=== PATIENT | female | born 1950 | race Two or more races ===

== ENCOUNTER 2019-01-18 16:25 | Emergency (ER) | payer OTHER ==
[~2019-01-18] VITALS: Ht 144.8 cm; Wt 59.0 kg
[2019-01-18 17:27] LABS: Basophils # (auto) 0.1 uL; Basophils % (auto) 0.4 % (0.0-2.0); Eosinophils # (auto) 0.1 uL; Eosinophils % (auto) 1.1 % (0.0-7.0); Hematocrit 41.5 % (36.0-46.0); Hemoglobin 13.5 g/dL (12.2-16.2); Lymphocytes # (auto) 2.4 uL; Lymphocytes % (auto) 17.9 % (10.0-50.0); Mean Corpuscular Hemoglobin 28.5 pg (28.0-32.0); Mean Corpuscular Hgb Conc. 32.5 g/dL (32.0-36.0); Mean Corpuscular Volume 87.8 fL (80.0-100.0); Monocytes # (auto) 0.7 uL; Monocytes % (auto) 5.3 % (0.0-12.0); Neutrophils # (auto) 10.3 uL; Neutrophils % (auto) 75.3 % (37.0-80.0); Platelet Count (auto) 335 10^3/uL (140-450); Red Blood Cells 4.72 10^6/uL (4.0-5.20); Red Cell Distribution Width 13.7 % (11.8-14.3); White Blood Cell 13.7 10^3/uL (4.4-10.8)
[2019-01-18 17:43] LABS: Albumin 3.9 g/dL (3.4-5.0); Anion Gap 11 (5-15); Blood Urea Nitrogen 13 mg/dL (7-18); Carbon Dioxide 23 mmol/L (21-32); Chloride 106 mmol/L (98-107); Glucose 191 mg/dL (74-106); Potassium 3.7 mmol/L (3.5-5.1); Sodium 140 mmol/L (136-145)
[2019-01-18 17:48] LABS: Alanine Aminotransferase 21 U/L (13-56); Alkaline Phosphatase 132 U/L (45-117); Aspartate Aminotransferase 15 U/L (15-37); BUN/Creatinine Ratio 17.1; Bilirubin, Total 0.3 mg/dL (0.2-1.0); GFR African American 97 mL/min; GFR Non-African American 80 mL/min; Total Protein 8.2 g/dL (6.4-8.2)
[2019-01-18] MEDS ORDERED: cloNIDine HCL 0.1 MG TAB ONE (19:10)
[2019-01-18] MEDS ORDERED: cloNIDine HCL 0.1 MG TAB PO ONE ×2 (19:15)
[2019-01-18 20:35] VITALS: BP 164/87
== END 2019-01-18 20:36 | disposition home or self-care (01) ==
LOC: EDBD 16:25 → ER 16:25
DX: S00.83XA Contusion of other part of head, initial encounter (principal); I10 Essential (primary) hypertension; V49.9XXA Car occupant (driver) (passenger) injured in unspecified traffic accident, initial encounter; Y93.I9 Activity, other involving external motion; Y92.488 Other paved roadways as the place of occurrence of the external cause; Y99.8 Other external cause status
CPT/HCPCS: 36415; 70450; 71250; 72125; 74176; 80053; 84484; 85025

== ENCOUNTER 2019-11-26 10:13 | Inpatient (IN) | payer OTHER ==
[~2019-11-26] VITALS: Ht 144.8 cm; Wt 63.3 kg
[2019-11-26 11:25] LABS: Basophils # (auto) 0.1 10 ^3/uL (0-0.2); Hemoglobin 13.6 g/dL (12.2-16.2); Lymphocytes % (auto) 13.7 % (10.0-50.0); Nucleated Red Blood Cells % 0.1 %
[2019-11-26 11:27] LABS: Basophils % (auto) 0.6 % (0.0-2.0); Eosinophils # (auto) 0.2 10 ^3/uL (0-0.8); Eosinophils % (auto) 0.8 % (0.0-7.0); Hematocrit 43.7 % (36.0-46.0); Lymphocytes # (auto) 3.5 10 ^3/uL (0.4-5.4); Mean Corpuscular Hemoglobin 28.1 pg (28.0-32.0); Mean Corpuscular Hgb Conc. 31.1 g/dL (32.0-36.0); Mean Corpuscular Volume 90.4 fL (80.0-100.0); Monocytes # (auto) 1.2 10 ^3/uL (0-1.3); Monocytes % (auto) 4.9 % (0.0-12.0); Neutrophils # (auto) 20.2 10 ^3/uL (1.6-8.6); Platelet Count (auto) 366 10^3/uL (140-450); Red Blood Cells 4.83 10^6/uL (4.0-5.20); Red Cell Distribution Width 15.1 % (11.8-14.3); White Blood Cell 25.2 10^3/uL (4.4-10.8)
[2019-11-26 11:36] LABS: Chloride 101 mmol/L (98-107); Sodium 133 mmol/L (136-145)
[2019-11-26 11:46] LABS: Alanine Aminotransferase 41 U/L (13-56); Albumin 3.5 g/dL (3.4-5.0); Alkaline Phosphatase 130 U/L (45-117); Anion Gap 13 (5-15); Aspartate Aminotransferase 41 U/L (15-37); Bilirubin, Total 0.6 mg/dL (0.2-1.0); Blood Urea Nitrogen 16 mg/dL (7-18); Calcium 8.8 mg/dL (8.5-10.1); Carbon Dioxide 19 mmol/L (21-32); GFR African American 81 mL/min; GFR Non-African American 67 mL/min; Glucose 399 mg/dL (74-106); Lactate Dehydrogenase 323 U/L (84-246); Total Protein 8.5 g/dL (6.4-8.2)
[2019-11-26 11:47] LABS: Urine Amorphous Crystal FEW /hpf (None Seen); Urine Bacteria FEW /hpf (None Seen); Urine Blood Negative /uL (Negative); Urine Specific Gravity 1.024 (1.001-1.035); Urine WBC 6 /hpf (0 - 5)
[2019-11-26 11:55] VITALS: BP 154/93
[2019-11-26] MEDS ORDERED: cefTRIAXone 1GM/50ML D5W 50 ML IV ONE (12:00)
[2019-11-26 12:14] LABS: Lactic Acid w/Reflex 4.6 mmol/L (0.4-2.0)
[2019-11-26 12:49] LABS: INR 1.04 (0.9-1.15); Partial Thromboplastin Time 23.4 sec (23.0-31.2)
[2019-11-26] MEDS ORDERED: SODIUM CHLORIDE 0.9% 1,000 ML IV SCH (12:52)
[2019-11-26] MEDS ORDERED: PIPERACILLIN-TAZOB 3.375GM 100 ML IV ONE (13:00)
[2019-11-26] MEDS ORDERED: DEXTROSE (50%) 50ML SYRG IV PRN (13:00)
[2019-11-26] MEDS ORDERED: VANCOMYCIN PER PHARMACY 0 MG IV SCH (13:00)
[2019-11-26] MEDS ORDERED: methylPREDNISolone SOD SUCC 125 MG/2 ML VL IV ONE (13:00)
[2019-11-26] MEDS ORDERED: NITROGLYCERIN 0.4 MG SL TAB SL PRN ×2 (13:00→13:15)
[2019-11-26] MEDS ORDERED: ENOXAPARIN SOD 60 MG/0.6 ML SYRINGE SC ONE ×2 (13:00→13:45)
[2019-11-26] MEDS ORDERED: FUROSEMIDE 40 MG/4 ML VIAL IV ONE (13:00)
[2019-11-26] MEDS ORDERED: ACETAMINOPHEN 500 MG TAB PO PRN (13:00)
[2019-11-26] MEDS ORDERED: MORPHINE SULF INJ 2 MG/ML SYRINGE 1ML IV PRN (13:00)
[2019-11-26] MEDS ORDERED: METOPROLOL SUCCINATE XL 50 MG TAB PO ONE ×2 (13:15→13:45)
[2019-11-26] MEDS ORDERED: LOSARTAN POTASSIUM 25 MG TAB PO ONE ×2 (13:15→13:45)
[2019-11-26] MEDS ORDERED: MORPHINE SULFATE 4 MG/ML SYR/VIAL IV PRN (13:15)
[2019-11-26] MEDS ORDERED: ONDANSETRON HCL 4 MG/2 ML VIAL IV PRN (13:15)
[2019-11-26] MEDS ORDERED: LORazepam 0.5 MG TAB PO PRN (13:15)
[2019-11-26] MEDS ORDERED: ATORVASTATIN 20 MG TAB PO ONE (13:15)
[2019-11-26] MEDS ORDERED: ALUM & MAG HYDROX-SIMETH LIQ(MAALOX) 30 ML PO ONE (13:15)
[2019-11-26] MEDS ORDERED: CHOLECALCIFEROL (VITD3) 2,000 UNIT CAP PO ONE (13:30)
[2019-11-26] MEDS ORDERED: ASPirin 81 mg TAB PO ONE (13:45)
[2019-11-26] MEDS ORDERED: DOCUSATE SOD 100 MG CAP PO ONE (13:45)
[2019-11-26] MEDS ORDERED: ZINC SULFATE 220mg CAP or TAB PO ONE (13:45)
[2019-11-26] MEDS ORDERED: ASCORBIC ACID 1,000 MG TAB PO ONE (13:45)
[2019-11-26] MEDS ORDERED: FAMOTIDINE (10MG/ML) 2ML VL IV ONE (13:45)
[2019-11-26] MEDS: FUROSEMIDE 20 MG/2 ML VIAL IV SCH ×2 (13:47→18:15)
[2019-11-26] MEDS ORDERED: ALBUTEROL SULF HFA 90MCG INH 200DOSE IN SCH (14:00)
[2019-11-26] MEDS ORDERED: POTASSIUM CHL 20MEQ/100ML 100 ML IV SCH (14:30)
[2019-11-26] MEDS ORDERED: FUROSEMIDE 20 MG/2 ML VIAL IV SCH (18:00)
[2019-11-26] MEDS: ACCU-CHEK COMFORT CURVE STRIP VI SCH ×2 (18:11→22:40)
[2019-11-26] MEDS: VANCOMYCIN 750mg/250ml 250 ML IV SCH (18:11)
[2019-11-26] MEDS: InsuLIN REG 1unit/0.01ml Soln (100units/ml) SC SCH ×2 (18:40→22:36)
[2019-11-26] MEDS ORDERED: BUDESONIDE (INHALATION) 180 MCG IH IN SCH (22:00)
[2019-11-26] MEDS: PIPERACILLIN-TAZOB 3.375GM 100 ML IV SCH (22:03)
[2019-11-26] MEDS: methylPREDNISolone SOD SUCC 40 MG/ML VL IV SCH (22:08)
[2019-11-26] MEDS: FAMOTIDINE (10MG/ML) 2ML VL IV SCH (22:08)
[2019-11-26] MEDS: ENOXAPARIN SOD 60 MG/0.6 ML SYRINGE SC SCH (22:09)
[2019-11-26] MEDS: ATORVASTATIN 20 MG TAB PO SCH (22:09)
[2019-11-27] MEDS: PIPERACILLIN-TAZOB 3.375GM 100 ML IV SCH ×5 (02:21→23:48)
[2019-11-27 05:55] LABS: Basophils # (auto) 0.1 10 ^3/uL (0-0.2); Basophils % (auto) 0.4 % (0.0-2.0); Eosinophils # (auto) 0 10 ^3/uL (0-0.8); Eosinophils % (auto) 0.1 % (0.0-7.0); Hematocrit 42.1 % (36.0-46.0); Hemoglobin 13.7 g/dL (12.2-16.2); Lymphocytes # (auto) 1.7 10 ^3/uL (0.4-5.4); Mean Corpuscular Hemoglobin 28.3 pg (28.0-32.0); Mean Corpuscular Hgb Conc. 32.6 g/dL (32.0-36.0); Mean Corpuscular Volume 86.9 fL (80.0-100.0); Monocytes # (auto) 0.1 10 ^3/uL (0-1.3); Monocytes % (auto) 0.8 % (0.0-12.0); Neutrophils # (auto) 16.6 10 ^3/uL (1.6-8.6); Neutrophils % (auto) 89.7 % (37.0-80.0); Nucleated Red Blood Cells % 0.1 %; Platelet Count (auto) 354 10^3/uL (140-450); Red Blood Cells 4.85 10^6/uL (4.0-5.20); Red Cell Distribution Width 14.6 % (11.8-14.3); White Blood Cell 18.4 10^3/uL (4.4-10.8)
[2019-11-27 06:14] LABS: Potassium 3.3 mmol/L (3.5-5.1)
[2019-11-27] MEDS: methylPREDNISolone SOD SUCC 40 MG/ML VL IV SCH (06:24)
[2019-11-27] MEDS: FUROSEMIDE 20 MG/2 ML VIAL IV SCH ×2 (06:24→18:46)
[2019-11-27 06:27] LABS: Albumin 3.2 g/dL (3.4-5.0); BUN/Creatinine Ratio 21.6; Bilirubin, Total 0.9 mg/dL (0.2-1.0); Calcium 8.6 mg/dL (8.5-10.1); Total Protein 7.8 g/dL (6.4-8.2)
[2019-11-27] MEDS: ACCU-CHEK COMFORT CURVE STRIP VI SCH ×4 (07:14→21:11)
[2019-11-27] MEDS: InsuLIN REG 1unit/0.01ml Soln (100units/ml) SC SCH ×4 (07:17→21:36)
--- NOTE | 2019-11-27 08:45 | NUR ---
ADMIT Admit to [facility] ELENANICOLAS admitted to [facility] via gurney on satellite project site monitor, and portable 02. Patient transferred to bed, connected to unit monitoring and oxygen, and weighed by bedscale. Patient oriented to KENNETH BUTTS, primary RN, unit, room, bed, and unit policies regarding patient care and visiting hours. All questions and concerns addressed, patient verbalized understanding. VITAL SIGNS: 148/80, 99, 25, 95% on 9L oxymizer, 97.9F Axillary. Wt 61.4kg
[2019-11-27] MEDS: ASCORBIC ACID 1,000 MG TAB PO SCH (10:00)
[2019-11-27] MEDS ORDERED: ZINC SULFATE 220mg CAP or TAB PO SCH (10:00)
[2019-11-27] MEDS: CHOLECALCIFEROL (VITD3) 2,000 UNIT CAP PO SCH (10:00)
[2019-11-27] MEDS ORDERED: LOSARTAN POTASSIUM 25 MG TAB PO SCH (10:00)
[2019-11-27] MEDS: ASPirin 81 mg TAB PO SCH (10:25)
[2019-11-27] MEDS: DOCUSATE SOD 100 MG CAP PO SCH (10:25)
[2019-11-27] MEDS: METOPROLOL SUCCINATE XL 50 MG TAB PO SCH (10:25)
[2019-11-27] MEDS: FAMOTIDINE (10MG/ML) 2ML VL IV SCH ×2 (10:26→21:11)
[2019-11-27] MEDS: ENOXAPARIN SOD 60 MG/0.6 ML SYRINGE SC SCH ×2 (10:27→21:11)
--- NOTE | 2019-11-27 11:09 | NUR ---
FAMILY T/C from patient's daughter, Farzana. Verified password. Updated on patient status and plan of care. All questions addressed at this time.
[2019-11-27] MEDS ORDERED: DILT60TA27 PO (11:13)
[2019-11-27 11:45] VITALS: BP 134/67
[2019-11-27 12:00] VITALS: BP 148/80
--- NOTE | 2019-11-27 12:15 | NUR ---
MD Dr Aguayo to see patient.
--- NOTE | 2019-11-27 14:15 | NUR ---
MD Dr Garcia to see patient. Orders received.
[2019-11-27 15:35] VITALS: BP 120/66
[2019-11-27] MEDS: VANCOMYCIN 750mg/250ml 250 ML IV SCH (17:00)
[2019-11-27] MEDS ORDERED: POTASSIUM CHL 20 Meq TABLET PO ONE (17:45)
--- NOTE | 2019-11-27 17:54 | NUR ---
MD Dr Leonardo to see patient. Orders received. Plan to transfer to [facility] per insurance tomorrow 11/28/19 when bed available.
--- NOTE | 2019-11-27 19:00 | NUR ---
END OF SHIFT NOTE Report given to NOC RNSophia. Endorsed care of patient. Patient remains NPO pending CT chest with contrast.
[2019-11-27 20:00] VITALS: BP 133/77
--- NOTE | 2019-11-27 20:00 | NUR ---
SHIFT OPENING NOTE RECEIVED PATIENT AWAKE, ALERT AND ORIENTED X4. KAZAKH SPEAKER. NO SOB, DISTRESS OR PAIN NOTED. ON 9L OXYMIZER WITH POX 97%. MCGARRY CATH DRAINING YELLOW URINE TO GRAVITY. PHYSICAL ASSESSMENT COMPLETED, SEE INTERVENTIONS. INSTRUCTED ON POC AND TO CALL FOR ASSIST NEEDED. BED IS IN THE LOWEST POSITION WITH SIDE RAILS UP X2, CALL LIGHT IS WITHIN REACH.
[2019-11-27] MEDS ORDERED: IOHEXOL 350 MG/ML 100ML IJ ONE (20:10)
--- NOTE | 2019-11-27 20:20 | NUR ---
PATIENT TRANSPORTED TO CT CONSENT SIGNED FOR CONTRAST ADMINISTRATION TAKEN VIA BED CONNECTED TO PORTABLE MONITOR WITH CHARGE NURSE WADE AND ELIUD ZUNIGA.
--- NOTE | 2019-11-27 20:36 | NUR ---
SAFELY BACK FROM CT
[2019-11-27] MEDS: ATORVASTATIN 20 MG TAB PO SCH (21:11)
--- NOTE | 2019-11-27 21:15 | NUR ---
SPOKE WITH PATIENTS DAUGHTER UPDATED HER ON PATIENTS STATUS AND POC VERBALIZED UNDERSTANDING.
[2019-11-28] VITALS (7 sets, daily range): BP systolic 118–136; BP diastolic 70–85
--- NOTE | 2019-11-28 02:00 | NUR ---
ROUNDS PATIENT QUIETLY LAYING IN BED SLEEPING. NO SOB, DISTRESS OR PAIN NOTED. ON 8L OXYMIZER POX 98%. WILL CONTINUE TO CLOSELY MONITOR.
[2019-11-28 03:20] LABS: Hematocrit 39.6 % (36.0-46.0); Hemoglobin 12.5 g/dL (12.2-16.2); Mean Corpuscular Hemoglobin 27.7 pg (28.0-32.0); Mean Corpuscular Hgb Conc. 31.7 g/dL (32.0-36.0); Mean Corpuscular Volume 87.3 fL (80.0-100.0); Platelet Count (auto) 347 10^3/uL (140-450); Red Blood Cells 4.53 10^6/uL (4.0-5.20); Red Cell Distribution Width 14.6 % (11.8-14.3); White Blood Cell 27.6 10^3/uL (4.4-10.8)
[2019-11-28 03:39] LABS: Calcium 8.4 mg/dL (8.5-10.1); Magnesium 2.6 mg/dL (1.6-2.6); Potassium 4.4 mmol/L (3.5-5.1)
[2019-11-28 03:47] LABS: BUN/Creatinine Ratio 30.6
[2019-11-28 04:07] LABS: Basophils % (manual) 0 (0.0-2.0); Blast Cells 0; Eosinophils % (manual) 0 (0-7); Metamyelocytes % 0; Myelocytes % 0; Promyelocytes % 0; Reactive Lymphocytes 0
[2019-11-28 05:07] LABS: Band Neutrophils % (manual) 2; Lymphocytes % (manual) 10 (10.0-50.0); Monocytes % (manual) 8 (0-12)
[2019-11-28] MEDS: PIPERACILLIN-TAZOB 3.375GM 100 ML IV SCH (05:18)
[2019-11-28] MEDS: FUROSEMIDE 20 MG/2 ML VIAL IV SCH ×2 (05:18→17:35)
[2019-11-28] MEDS: ACCU-CHEK COMFORT CURVE STRIP VI SCH ×4 (05:18→21:36)
[2019-11-28] MEDS: InsuLIN REG 1unit/0.01ml Soln (100units/ml) SC SCH ×4 (05:22→21:33)
[2019-11-28] MEDS ORDERED: POTASSIUM CHL 20MEQ/100ML 100 ML IV ONE (05:28)
--- NOTE | 2019-11-28 05:30 | NUR ---
MORNING HYGIENE CARE PATIENT HAS REFUSED AT THIS TIME AND WILL DO IT HERSELF DURING THE DAY TIME. SUPPLIES LEFT AT BEDSIDE.
--- NOTE | 2019-11-28 07:00 | NUR ---
Report received from Daly KELLY Patient is to be transferred to [place] for evaluation of need for L Cardiac Cath w/stents once patient respiratory status is stable. Received patient asleep in bed in no signs of distress. NEURO: AO x4, moves all extremities,afebrile. CARDIAC: NSR with wide BBB. Hx of bigeminy yesterday 11/28/19, HR 80-90's, BP systolic 120's-130's. RESP: Patient is on 8L oxymizer, O2 saturation 98%. GI: Patient eating, Cardiac diet. Last BM 11/26/19. : Romano catheter to gravity, clear yellow 850 ml output p.m. shift. SKIN/INTEGUMENTARY: Skin WNL. ACCESS: PIV left wrist 22g, PIV left forearm 20g. FAMILY: Daughter Farzana [phone], updated last night on status. Will continue to monitor.
--- NOTE | 2019-11-28 07:20 | NUR ---
END OF SHIFT REPORT GIVEN AND CARE ENDORSED TO DEBBI KELLY.
--- NOTE | 2019-11-28 08:00 | NUR ---
Patient turns self. Patient teaching regarding need for mobility regarding skin integrity. HOB greater 30 degrees, patient teaching regarding moving legs/arms/turning in bed to promote skin integrity and prevent breakdown and to prevent DVT.
--- NOTE | 2019-11-28 08:00 | NUR ---
Initial Contact Patient arousable from sleep. Patient reports 0/10 pain. No chest discomfort, numbness, tingling or symptoms or cardiac symptoms. Patients daughter called for update, RN will call her back at 0830. Patient remains on Oxymizer at 8L, no cough. Awaiting orders for transfer to [place]. Patient teaching regarding S/S of angina and/or heart attack.
--- NOTE | 2019-11-28 08:40 | NUR ---
Patient daughter Farzana called. She states that patient would like to walk to bathroom to have a bowel movement. Discussed S/S of angina. Will access with patient. She will call and discuss with patient the use of bedpan to preserve and access whether patient should be mobilizing with her cardiac status.
--- NOTE | 2019-11-28 09:05 | NUR ---
BOWEL MOVEMENT Patient on bedpan for BM. Moderate brown, loose bowel movement. Romano catheter care completed and patient cleaned by WIRE WEAVER CLOTH.
--- NOTE | 2019-11-28 09:50 | NUR ---
Dr. Leonardo bedside. New order to transfer to [facility] and paperwork for transfer. Discussed case management and downgrade from [facility] to telemetry here until she is transferred. ROVING CARRIER on phone with ICU .
--- NOTE | 2019-11-28 10:00 | NUR ---
ROUNDS Patient receiving bed bath assisted by STRUCTURAL ENGINEERING DRAFTING OFFICER.
--- NOTE | 2019-11-28 10:00 | NUR ---
SKIN/MOBILITY Patient encouraged to move in bed, turn self. Continue patient teaching to preserve skin integrity.
--- NOTE | 2019-11-28 10:06 | NUR ---
Spoke with Marketing Education Teacher to notify department of new order to transfer. Requested order for addiction social worker consult.
[2019-11-28] MEDS: DOCUSATE SOD 100 MG CAP PO SCH (10:39)
[2019-11-28] MEDS: ENOXAPARIN SOD 60 MG/0.6 ML SYRINGE SC SCH ×2 (10:39→21:36)
[2019-11-28] MEDS: FAMOTIDINE (10MG/ML) 2ML VL IV SCH ×2 (10:39→21:36)
[2019-11-28] MEDS: ASCORBIC ACID 1,000 MG TAB PO SCH (10:40)
[2019-11-28] MEDS: ASPirin 81 mg TAB PO SCH (10:40)
[2019-11-28] MEDS: CHOLECALCIFEROL (VITD3) 2,000 UNIT CAP PO SCH (10:40)
[2019-11-28] MEDS: METOPROLOL SUCCINATE XL 50 MG TAB PO SCH (10:43)
--- NOTE | 2019-11-28 11:08 | NUR ---
Paitient on bedpan. Brown liquid, moderate. Patient cleaned with soap and water, durán care complete. Partial linen change.
--- NOTE | 2019-11-28 11:09 | NUR ---
[id number] 11/28/19 - Faxed to [facility] at [phone] face sheet, order for transfer for cardiac cath procedure, H/P, labs, meds, cardiac consult, pulmonary consult, progress notes. Pending review and bed availability. Addendum: 11/28/19 at 1301 by Maliha Hill RN, CM [id number] 11/28/19 - Contacted [facility] correctional casework specialist at [phone] spoke with DEEPA Adames who acknowledged receiving all faxed clinicals. Rosangela stated she had contacted [facility] and was waiting to hear back regarding pending bed status.
--- NOTE | 2019-11-28 11:30 | NUR ---
BSC 205
--- NOTE | 2019-11-28 12:00 | NUR ---
ROUNDS Patient in bed awake, no signs of distress. Reports no chest pain. Patient turns self, encourage to move in bed for skin integrity and DVT prevention.
--- NOTE | 2019-11-28 12:10 | NUR ---
Daughter Farzana called with several questions and update on status. Notified of order to transfer, RN obtained over the phone consent to transfer based up patients language barrier and request to discuss this with her daughter. Updated on chest CT results, todays labs and patients current blood sugar. All question answered. Daughter will call back.
--- NOTE | 2019-11-28 12:15 | NUR ---
Dr. Mckenzie bedside for update and requested daughters phone number.
--- NOTE | 2019-11-28 14:00 | NUR ---
ROUNDS Patient awake in bed, just finished lunch. Patient reports no chest pain, pain 0/10.Bed lowest position, call light available.
--- NOTE | 2019-11-28 14:00 | NUR ---
Report given to [facility] nurse bed #280A to Katie Addendum: 11/28/19 at 1442 by Zach Peña RN Called to give report, RN on lunch.
--- NOTE | 2019-11-28 15:00 | NUR ---
Report given to Katie RN bed #[id number] .
--- NOTE | 2019-11-28 15:55 | NUR ---
Called daughter to update her on patient transfer to telemetry and possible procedure here instead of [facility].
--- NOTE | 2019-11-28 16:05 | NUR ---
Patient arrived on unit from [facility]. Patient is awake, alert, and oriented. No obvious distress noted. Patient is now is room 280B. Will continue to monitor.
--- NOTE | 2019-11-28 17:05 | NUR ---
Hospitalist Paged Paged and left voice message for Dr. Leonardo regarding E-coli in urine.
[2019-11-28] MEDS ORDERED: cefTRIAXone 1GM/50ML D5W 50 ML IV ONE (17:30)
--- NOTE | 2019-11-28 19:42 | NUR ---
Opening Shift Note Assumed care of patient, awake and alert x 4. No S/S of distress/SOB or pain. Bed is in lowest position and locked. Call light within reach. Board updated. Tele box number matches monitor and leads are in correct placement. Instructed on POC and to call for assist PRN, will continue to monitor for changes Q1hr and PRN.
[2019-11-28] MEDS: ATORVASTATIN 20 MG TAB PO SCH (21:35)
[2019-11-28] MEDS: SACUBITRIL-VALSARTAN 24mg/26mg TAB PO SCH (21:36)
--- NOTE | 2019-11-28 21:42 | NUR ---
Spoke to patient's daughter, Farzana, and gave her a brief update on patient's condition after confirming password.
[2019-11-29] VITALS (7 sets, daily range): BP systolic 125–147; BP diastolic 67–87
--- NOTE | 2019-11-29 00:03 | NUR ---
Patient now NPO pending left heart cath order from MD Garcia. Patient aware that NPO order is in place and what that entails.
[2019-11-29] MEDS: FUROSEMIDE 20 MG/2 ML VIAL IV SCH ×2 (06:10→18:00)
[2019-11-29] MEDS: ACCU-CHEK COMFORT CURVE STRIP VI SCH ×4 (06:10→21:07)
[2019-11-29 06:18] LABS: INR 1.05 (0.9-1.15); Partial Thromboplastin Time 24.6 sec (23.0-31.2)
[2019-11-29] MEDS: InsuLIN REG 1unit/0.01ml Soln (100units/ml) SC SCH ×4 (06:36→21:06)
--- NOTE | 2019-11-29 06:37 | NUR ---
Held Regular Insulin for blood glucose of 175 mg/dl because patient is NPO pending left heart cath.
--- NOTE | 2019-11-29 07:40 | NUR ---
Opening Note Received report from mini shifter RN. Patient is awake, alert and oriented x4. No signs or symptoms of distress noted at this time. Patient is on 5L Oxymizer, respirations even and unlabored. Patient denies pain at this time. Romano catheter in place patent and draining. Reviewed plan of care [facility] patient. Bed in low and locked position, call light within reach. Will continue to monitor Q1 hour and PRN.
--- NOTE | 2019-11-29 08:08 | NUR ---
Dr. Leonardo at station updating this RN on plan of care. Patient is to transfer to [place] for insurances purposes. placed new orders to cancel left heart cath scheduled for today. This RN called labor employment associate to inform them of cancellation, and left a message for Dr. Garcia. Patients daughter updated on plan of care. Will continue to monitor Q1 hour and PRN.
[2019-11-29 08:26] LABS: Basophils # (auto) 0.1 10 ^3/uL (0-0.2); Basophils % (auto) 0.5 % (0.0-2.0); Eosinophils # (auto) 0.2 10 ^3/uL (0-0.8); Eosinophils % (auto) 1.2 % (0.0-7.0); Hematocrit 42.6 % (36.0-46.0); Hemoglobin 13.5 g/dL (12.2-16.2); Lymphocytes # (auto) 3.4 10 ^3/uL (0.4-5.4); Lymphocytes % (auto) 22.8 % (10.0-50.0); Mean Corpuscular Hemoglobin 27.8 pg (28.0-32.0); Mean Corpuscular Hgb Conc. 31.7 g/dL (32.0-36.0); Mean Corpuscular Volume 87.7 fL (80.0-100.0); Monocytes # (auto) 1.1 10 ^3/uL (0-1.3); Monocytes % (auto) 7.4 % (0.0-12.0); Neutrophils % (auto) 68.1 % (37.0-80.0); Nucleated Red Blood Cells % 0.1 %; Platelet Count (auto) 335 10^3/uL (140-450); Red Blood Cells 4.86 10^6/uL (4.0-5.20); Red Cell Distribution Width 14.6 % (11.8-14.3); White Blood Cell 14.7 10^3/uL (4.4-10.8)
[2019-11-29 08:37] LABS: Calcium 8.6 mg/dL (8.5-10.1); Potassium 4.1 mmol/L (3.5-5.1)
[2019-11-29 08:41] LABS: BUN/Creatinine Ratio 37.5
--- NOTE | 2019-11-29 08:57 | NUR ---
[id number] 11/29/19 - Contacted [facility] patient case manager at [phone], requesting update on pending transfer to [facility] and bed availability. Spoke with [facility] learning center coordinator who stated patient case manager was on another phone call and requested my call back info. [facility] stated case manger would call me back.
[2019-11-29] MEDS: METOPROLOL SUCCINATE XL 50 MG TAB PO SCH (09:37)
[2019-11-29] MEDS: DOCUSATE SOD 100 MG CAP PO SCH (09:38)
[2019-11-29] MEDS: SACUBITRIL-VALSARTAN 24mg/26mg TAB PO SCH ×2 (09:38→21:07)
[2019-11-29] MEDS: FAMOTIDINE (10MG/ML) 2ML VL IV SCH ×2 (09:38→21:06)
[2019-11-29] MEDS: ENOXAPARIN SOD 60 MG/0.6 ML SYRINGE SC SCH ×2 (09:39→21:07)
[2019-11-29] MEDS: ASPirin 81 mg TAB PO SCH (09:52)
[2019-11-29] MEDS: CHOLECALCIFEROL (VITD3) 2,000 UNIT CAP PO SCH (09:55)
[2019-11-29] MEDS: ASCORBIC ACID 1,000 MG TAB PO SCH (09:55)
--- NOTE | 2019-11-29 13:30 | NUR ---
Durán catheter dc'd Order to discontinue durán catheter. Durán dc'd with clean technique following deflation of balloon. Patient tolerated well with no complaints of pain. Continue care.
--- NOTE | 2019-11-29 14:59 | NUR ---
assessment Patient is a 69 year old female who was sleeping. Per patients daughter Farzana prior to admission patient lived home with her and was independent. Patient had no need for DME. Patients PCP is Dr Krishna. Per Farzana patient was having shortness of breath so she called 911, I informed Farzana I will continue to monitor and follow up as appropriate for any post discharge needs. Farzana verbalized understanding. Addendum: 11/29/19 at 1508 by Letty PITT Amended: Links added.
--- NOTE | 2019-11-29 16:30 | NUR ---
[id number] 11/29/19- Contacted [facility] adult protective caseworker at [phone] regarding pending transfer of patient to [facility], spoke with patient relations coordinator who stated patient has been assigned bed 242A the number to call report to is [phone] ext [phone]. Transportation is pending due to authorization portal is currently not working. Transportation info will be called to nurse's station and/or to adult protective caseworker transportation dispatch manager.
--- NOTE | 2019-11-29 19:05 | NUR ---
Closing Note Report given to shift supervisor rn RN. No signs or symptoms of distress noted at this time.
--- NOTE | 2019-11-29 20:55 | NUR ---
Received a call from [facility]. Patient will be transferred in 90 minutes.
[2019-11-29] MEDS ORDERED: cefTRIAXone 1GM/50ML D5W 50 ML IV SCH (21:00)
[2019-11-29] MEDS: ATORVASTATIN 20 MG TAB PO SCH (21:07)
--- NOTE | 2019-11-29 21:35 | NUR ---
Called and gave report to Alexus at [facility].
--- NOTE | 2019-11-29 21:45 | NUR ---
Called and notified Farzana, patient's NOK, of transfer.
--- NOTE | 2019-11-29 22:20 | NUR ---
Patient picked up by [facility] to be transferred to [place] Discharge instructions given as ordered. Encourage to follow up with PMD as instructed. All questions and concerns addressed. Patient verbalized understanding.Telemetry unit returned to ICU. Patient taken to vehicle via stretcher with all personal belongings, accompanied by paramedics. No distress noted at time of departure.
== END 2019-11-29 22:20 | disposition short-term general hospital (02) | DRG 871 ==
LOC: EDBD 10:13 → ER 10:13 → OVERFLOW 10:14 → DOU IN ICU 11-27 08:45 → TELE-WESTW 11-28 15:53
PROVIDERS: ADMIT Hospitalist; ATTEND Internal Medicine Geriatric Medicine
PROC: 5A09357 Assistance with Respiratory Ventilation, Less than 24 Consecutive Hours, Continuous Positive Airway Pressure (ICD-10-PCS; principal; 2019-11-26)
DX: A41.9 Sepsis, unspecified organism (principal); J96.01 Acute respiratory failure with hypoxia; I21.4 Non-ST elevation (NSTEMI) myocardial infarction; I50.23 Acute on chronic systolic (congestive) heart failure; I42.9 Cardiomyopathy, unspecified; N30.00 Acute cystitis without hematuria; J90 Pleural effusion, not elsewhere classified; E66.9 Obesity, unspecified; E78.5 Hyperlipidemia, unspecified; Z79.4 Long term (current) use of insulin; E87.6 Hypokalemia; I11.0 Hypertensive heart disease with heart failure; Z20.828 Contact with and (suspected) exposure to other viral communicable diseases; B96.20 Unspecified Escherichia coli [E. coli] as the cause of diseases classified elsewhere; E11.21 Type 2 diabetes mellitus with diabetic nephropathy; E11.40 Type 2 diabetes mellitus with diabetic neuropathy, unspecified; Z68.30 Body mass index [BMI] 30.0-30.9, adult
CPT/HCPCS: 36415; 36600; 71045; 71260; 80048; 80053; 80202; 81001; 82728; 82805; 82962; 83605; 83615; 83690; 83735; 83880; 84443; 84484; 85007; 85025; 85027; 85379; 85610; 85730; 86141; 86850; 86900; 86901; 87040; 87081; 87086; 87088; 87186; 87426; 93005; 93306; 94660; 99291; G0378; J0696; J1815; J2543; J3480; J3490